=== PATIENT | male | born 1965 | race Two or more races ===

== ENCOUNTER 2024-11-17 06:05 | Day surgery (SDC) | payer OTHER ==
[2024-11-13 12:45] VITALS: BP 150/84
[~2024-11-17] VITALS: Ht 177.8 cm; Wt 81.6 kg
[2024-11-17] MEDS ORDERED: BUPIVACAINE HCL/MPF 0.5% 30ML VIAL ONE (09:24)
[2024-11-17] MEDS ORDERED: EPINEPHRINE HCL/PF 1 MG/ML AMPUL ONE (09:24)
[2024-11-17] MEDS ORDERED: METHYLPREDNISOLONE ACETATE 80 MG/ML VIAL ONE (09:24)
[2024-11-17] MEDS ORDERED: CEFOXITIN SODIUM 2,000 MG VIAL IV ONE (09:25)
[2024-11-17] MEDS ORDERED: PROMETHAZINE HCL 25 MG/ML AMPUL IM PRN (10:30)
[2024-11-17] MEDS ORDERED: CEFAZOLIN SODIUM 1,000 MG VIAL IV ONE (10:30)
[2024-11-17] MEDS ORDERED: MEPERIDINE HCL/PF 25 MG/ML VIAL IM PRN (10:30)
[2024-11-17] MEDS ORDERED: TRAM1TAB98 PO (10:33)
[2024-11-17] MEDS ORDERED: CEFADROXIL500 MG PO (10:33)
[2024-11-17] MEDS ORDERED: CEFAZOLIN SODIUM 1,000 MG VIAL ONE (10:47)
== END 2024-11-17 16:00 | disposition home or self-care (01) ==
LOC: CIR.AMB 06:05
PROVIDERS: ATTEND Orthopaedic Surgery Sports Medicine
DX: M23.221 Derangement of posterior horn of medial meniscus due to old tear or injury, right knee (principal); M17.11 Unilateral primary osteoarthritis, right knee; M23.51 Chronic instability of knee, right knee; M67.51 Plica syndrome, right knee; M22.41 Chondromalacia patellae, right knee